=== PATIENT | male | born 1990 | race Caucasian/White ===

== ENCOUNTER 2016-06-11 13:55 | Emergency (ER) | payer OTHER ==
[~2016-06-11] VITALS: Ht 170.2 cm; Wt 56.7 kg
[2016-06-11 13:55] VITALS: BP_SYST 121
[2016-06-11] MEDS ORDERED: IBUPROFEN 600 MG TABLET PO ONE (14:45)
== END 2016-06-11 14:52 | disposition home or self-care (01) ==
LOC: SED 13:55
DX: J20.9 Acute bronchitis, unspecified (principal)
CPT/HCPCS: 71020-TC; 93005; 99284